=== PATIENT | female | born 1955 | race Caucasian/White ===

== ENCOUNTER → 2018-06-28 07:55 | Outpatient (CLI) | payer OTHER, SELFPAY | DX: Z12.31 Encounter for screening mammogram for malignant neoplasm of breast (principal) | CPT/HCPCS: 77063; 77067 ==

== ENCOUNTER → 2023-12-03 | Outpatient (CLI) | payer MEDICARE, OTHER, SELFPAY ==
--- OUTSIDE RECORDS SUMMARY | 2023-12-03 07:30 | XMS RPT_ITS | CCD ---
Author Name Unknown Address [address] [place] [address] Organization [facility] Care Team Providers Care Assessment Consultant Name Role Phone Nanette Kendall Unavailable Chana Palomino Unavailable Unavailable Unavailable Unavailable Yuli Balderrama Primary Care Provider [phone] YULI BALDERRAMA Primary Care Unavailable ONDINA COFFEY Referring Unavailable YULI BALDERRAMA Primary Care Unavailable Allergies Allergy Classification Reported Allergen(s) Allergy Type Date of Onset Reaction(s) Facility (2 sources) celecoxib Drug Allergy [facility] Work Phone: (2 sources) traMADol Drug Allergy [facility] Work Phone: (2 sources) celecoxib; Translations: [CELECOXIB] Drug Allergy 7 [facility] Work Phone: (2 sources) Crump-2 Inhibitor/Nsaid ; Translations: [CRUMP-2 INHIBITOR/NSAID ] Propensity to adverse reactions 4 [facility] Medications Current Medications Medication Drug Class(es) Dates Sig (Normalized) Sig (Original) amoxicillin 875 mg / clavulanate 125 mg oral tablet (1 source) Penicillin-class Antibacterial Start: 09-04-2023 End: 09-11-2023 take 1 tablet by mouth twice daily amoxicillin-clav ulanic acid (AUGMENTIN) 875-125 mg per tablet Take 1 tablet by mouth two times a day for 7 days. 14 tablet 0 09/04/2023 09/11/2023 Active Completed/Discontinued Medications Medication Drug Class(es) Dates Sig (Normalized) Sig (Original) 60 actuat albuterol 0.09 mg/actuat metered dose inhaler (4 sources) beta2-Adrenergic Agonist Start: 08-30-2006 End: 08-28-2008 ALBUTEROL SULFATE HFA, 108MCG/ACT (Inhalation Aerosol Soln) 1-2 Aerosol Soln q4-6 hr prn for 0 days Refills: 0 Ordered: 28-Aug-2008 Chana Palomino NASH Start : 30-Aug-2006 End : 28-Aug-2008 Inactive Problems Active Problems Problem Classification Problem Date Documented Da te Episodic/Chronic Adjustment disorders (2 sources) Dysfunctional grieving; 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 Asthma (12 sources) Asthma; Translations: [Asthma] 01-25-2017 Chronic Deficiency and other anemia (2 sources) Anemia; Translations: [Anemia] 01-25-2017 Episodic Disorders of lipid metabolism (2 sources) Hypercholesterolemia; Translations: [Hypercholesteremia] 01-25-2017 Chronic Esophageal disorders (10 sources) Gastroesophageal reflux disease; Translations: [GERD (gastroesophageal reflux disease)] 01-25-2017 Chronic Gastrointestinal hemorrhage (10 sources) Rectal hemorrhage; Translations: [Gastrointestinal hemorrhage] 01-25-2017 Episodic Headache; including migraine (2 sources) Migraine; Translations: [Migraine] 01-25-2017 Chronic Past or Other Problems Problem Classification Problem Date Documented Da te Episodic/Chronic Genitourinary symptoms and ill-defined conditions (2 sources) Dysuria; Translations: [Dysuria] Resolved: 04-06-2009 09-28-2015 Episodic Residual codes; unclassified (2 sources) Needs influenza immunization; Translations: [Need for prophylactic vaccination and inoculation against influenza] Resolved: 04-06-2009 08-17-2015 Episodic Unclassified (2 sources) TAHBSO 01-25-2017 Unclassified (2 sources) Cholelithiasis; Translations: [Cholelithiasis] 01-25-2017 Unclassified (4 sources) SYMPTOMS INVOLVING URINARY SYSTEM; DYSURIA (788.1) Unclassified (4 sources) Non-smoker; Translations: [Non-smoker] 01-25-2017 Unclassified (2 sources) BMI 31.0-31.9,adult Unclassified (2 sources) Internal hemorrhoid Unclassified (2 sources) Family history of colon cancer Results Test Name Value Interpretation Reference Range Facil ity Vital Signs Date Time Vital Sign Value Performing Clinician Facility 09-04-2023 15:02-0400 Body temperature 98.2 [degF] Ondina Erlinda [employer]CASS TRIMMER.DRILL INSTRUCTOR Work Phone: [facility] 09-04-2023 15:02-0400 Body weight 68.95 kg Ondina Erlinda [employer]CASS TRIMMER[employer]DRILL INSTRUCTOR Work Phone: [facility] 09-04-2023 15:02-0400 Diastolic blood pressure 83 mm[Hg] Ondina Erlinda CARCASS TRIMMER[employer]DRILL INSTRUCTOR Work Phone: [facility] 09-04-2023 15:02-0400 Heart rate 97 /min Ondina Erlinda [employer]CASS TRIMMER[employer]DRILL INSTRUCTOR Work Phone: [facility] 09-04-2023 15:02-0400 Respiratory rate 22 /min Ondina Erlinda CARCASS TRIMMER[employer]DRILL INSTRUCTOR Work Phone: [facility] 09-04-2023 15:02-0400 SaO2% (BldA) [Mass fraction] 97 % Ondina Erlinda CARCASS TRIMMER.DRILL INSTRUCTOR Work Phone: [facility] 09-04-2023 15:02-0400 Systolic blood pressure 134 mm[Hg] Ondina Erlinda CARCASS TRIMMER.DRILL INSTRUCTOR Work Phone: [facility] 01-25-2017 08:54-0400 BMI (Body Mass Index) 31.32 kg/m2 Nanette [facility] Work Phone: 01-25-2017 08:54-0400 Body weight 72.75 kg Nanette [facility] Work Phone: 01-25-2017 08:54-0400 BP Diastolic 90 mm[Hg] Nanette [facility] Work Phone: Encounters Encounter Date Encounter Type Care Provider Facility Start: 09-04-2023 End: 09-04-2023 ambulatory YULI BALDERRAMA Facility:[facility] Start: 09-04-2023 End: 09-04-2023 Patient encounter procedure Ondina Coffey CARCASS TRIMMER[employer]DRILL INSTRUCTOR Work Phone: [facility] Plan of Treatment Date Care Activity Detail Author Start: 07-13-2023 Covid-19 Vaccine () Covid-19 Vaccine () [facility] Start: 07-13-2023 Influenza vaccination Influenza Vaccine (#1) [facility] Start: 11-12-2022 Advance Directive Discussion Advance Directive Discussion [facility] Start: 11-12-2022 Depression Assessment Depression Assessment [facility] Start: 2020 Bone Density Screening Bone Density Screening [facility] Start: 2020 Pneumococcal Vaccine: 65+ (1 - PCV) Pneumococcal Vaccine: 65+ (1 - PCV) [facility] Start: 01-25-2017 Procedure Education Eprescribed prescriptions (G8553) [facility] Work Phone: Start: 2015 RSV Vaccine (1 - 1-dose 60+ series) RSV Vaccine (1 - 1-dose 60+ series) [facility] Start: 05-01-2012 Colorectal Cancer Screening Colorectal Cancer Screening [facility] Start: 05-01-2012 Sigmoidoscopy Sigmoidoscopy [facility] Start: 10-22-2008 Provider Instructions for Treatment [facility] Work Phone: Start: 08-28-2008 Culture bacterial quanttative colony count urine URINE HAN CULTURE-AVERY COL COUNT (10184) [facility] Work Phone: Start: 04-22-2008 Provider Instructions for Treatment [facility] Work Phone: Start: 04-22-2008 Blood occult fecal hgb deter ia qual feces 1-3 FECAL OCCULT- Tubes sent home (79451) [facility] Work Phone: Immunizations Immunization Date Immunization Notes Care Provider Blas morelos 08-28-2008 influenza, seasonal, injectable Nanette Kendall [facility] Work Phone: Payers Date Payer Category Payer Medicare MEDICARE MEDICAR E A AND B [id number] 2020-Present [phone] [place] [address] Medicare [id number] 2020 Medicare [id number] 2020 Medicare [id number] 2020 Private Health Insurance HUMANA HUMANA MEDICARE SUPPLEMENT [id number] 2020-Present [phone] [address] [address] [place] [address] Indemnity [id number] Unknown [facility] [employer]. 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 alcohol (finding) [facility] Start: 10-19-2020 End: 09-04-2023 Tobacco use panel [facility] National Score (1-100), lower number is lower risk Not on file [facility] Start: 1955 Sex Assigned At Not on file [facility] Progress note 09-04-2023 Note Date & Type Note Facility 09-04-2023 Note HNO ID: [id number] Author: Luci Zelaya RT(R) Service: Radiology Author Type: Technologist Type: Progress Notes Filed: 09/04/2023 3:33 PM Note Text: Radiology Service Progress Note PATIENT NAME: Marquita Reyna DATE OF SERVICE: September 04, 2023 TIME: 3:25 PM PATIENT IDENTITY VERIFICATION COMPLETED USING TWO (2) IDENTIFIERS: Name and Date of confirmed by patient verbally. FALL SCREENING: Has the patient had 2 falls in the last year or 1 fall with injury or currently using an Ambulatory Assistive Device (Walker, Cane, Wheelchair, Crutches, etc.)? No PATIENT GENDER DATA: Female. status: : No status: NO. PATIENT RELEVANT IMPLANT DATA REVIEWED: Yes RADIOLOGY DEPARTMENT: General X-ray: Exam(s) Completed: Chest X-Ray PERIPHERAL IV DATA: Not applicable SIGNED BY: RT Tonya(R) September 04, 2023 3:25 PM [facility] Progress note 09-04-2023 Note Date & Type Note Facility 09-04-2023 Note HNO ID: [id number] Author: Ondina Coffey APRN.DRILL INSTRUCTOR Service: ? Author Type: Nurse Practitioner Type: Progress Notes Filed: 09/04/2023 3:46 PM Note Text: Subjective The history is provided by the patient. No tile and marble setter was used. HPI Marquita eRyna is a 67 year old female who presents today for CC of cough, and pain in back with coughing that started 2 months ago and won't go away. She was placed on Prednisone x 2, zpack, tesssalon perls by Abel Goodson without relief. She denies ever any resolution of symptoms . She has not had a cxr, denies any chronic lung disease BP 134/83 Pulse 97 Temp 36.8 ?C (98.2 ?F) Resp 22 Wt 68.9 kg (152 lb) SpO2 97% BMI 29.69 kg/m? Social History Tobacco Use Smoking status: Never Smokeless tobacco: Never Substance Use Topics Alcohol use: No Drug use: Never PAST MEDICAL HISTORY Diagnosis Date Anemia, unspecified External hemorrhoids without mention of complication Internal hemorrhoids without mention of complication PMH - PAST MEDICAL HISTORY OF fibroid tumor Unspecified asthma(493.90) I have confirmed and edited as necessary, the [facility] Review of Systems Constitutional: Negative for chills and fever. HENT: Negative for congestion, ear pain, sinus pain and sore throat. Respiratory: Positive for cough. Negative for sputum production, shortness of breath and wheezing. Cardiovascular: Negative for chest pain. Musculoskeletal: Negative for myalgias. Neurological: Negative for headaches. Objective Physical Exam Vitals and nursing note reviewed. HENT: Head: Normocephalic and atraumatic. Right Ear: Tympanic membrane, ear canal and external ear normal. Left Ear: Tympanic membrane, ear canal and external ear normal. Nose: No mucosal edema, congestion or rhinorrhea. Right Sinus: No maxillary sinus tenderness or frontal sinus tenderness. Left Sinus: No maxillary sinus tenderness or frontal sinus tenderness. Mouth/Throat: Pharynx: Uvula midline. No oropharyngeal exudate or posterior oropharyngeal erythema. Cardiovascular: Rate and Rhythm: Normal rate and regular rhythm. Heart sounds: Normal heart sounds. Pulmonary: Effort: Pulmonary effort is normal. Breath sounds: Normal breath sounds. Comments: A dry, tickling, hacking cough was noted during this encounter. Talking in full sentences. Handling secretions without drooling. Lips and nailbeds are pink without cyanosis. Lymphadenopathy: Head: Right side of head: No submental, submandibular or tonsillar adenopathy. Left side of head: No submental, submandibular or tonsillar adenopathy. Cervical: No cervical adenopathy. Skin: General: Skin is warm and dry. Neurological: Mental Status: She is alert. Psychiatric: Mood and Affect: Affect normal. ASSESSMENT/PLAN: 1. Chronic cough - ICD9: 786.2, ICD10: R05.3 Doxycycline/augmentin as ordered Albuterol inhaler 2 puffs every 4-6 hours Follow up with PCP for recheck in 2 weeks. - XR CHEST 2V FRONTAL/LAT RESULT: Lines, tubes, and devices: None. Lungs and pleura: Hazy opacities overlying the right lower lung noted. The left lung is clear. No solid mass lesions seen. No pleural effusions or pneumothorax. Cardiomediastinal silhouette: Stable cardiomediastinal silhouette. Bones and soft tissues: There are degenerative changes in the spine. IMPRESSION: Hazy opacities overlying the right lower lung, likely related to pneumonia or aspiration. Please clinically correlate. Interpreted by : MIKEL ESCUDERO MD Diagnosis and treatment plan were discussed and questions were answered to the patient's satisfaction. Pt acknowledged understanding of concepts and follow up plan. Specific signs and symptoms that would indicate the need for higher level of care were discussed in detail warranting prompt ER evaluation. Ondina Coffey APRN.CNP [facility] Instructions 09-04-2023 Patient Instructions Note Date & Type Note Facility 09-04-2023 Instructions Ondina Coffey APRN.MATTHEW - 09/04/2023 3:46 PM EDT Doxycycline/augmentin as ordered Albuterol inhaler 2 puffs every 4-6 hours Follow up with PCP for recheck in 2 weeks. * Seek medical care immediately, call 911, go to ER if you have chest pain, difficulty breathing, shortness of breath, inability to swallow. documented in this encounter [facility] History of Present illness Narrative 09-04[facility]20[facility] 3[facility]11 PM EDT Note Date & Type Note Facility 09-04-2023 History of Presen t illness Narrative Subjective The history is provided by the patient. No tile and marble setter was used. HPI Marquita Reyna is a 67 year old female who presents today for CC of cough, and pain in back with coughing that started 2 months ago and won't go away. She was placed on Prednisone x 2, zpack, tesssalon perls by Abel Goodson without relief. She denies ever any resolution of symptoms . She has not had a cxr, denies any chronic lung disease BP 134/83 Pulse 97 Temp 36.8 C (98.2 F) Resp 22 Wt 68.9 kg (152 lb) SpO2 97% BMI 29.69 kg/m Social History Tobacco Use Smoking status: Never Smokeless tobacco: Never Substance Use Topics Alcohol use: No Drug use: Never PAST MEDICAL HISTORY Diagnosis Date Anemia, unspecified External hemorrhoids without mention of complication Internal hemorrhoids without mention of complication PMH - PAST MEDICAL HISTORY OF fibroid tumor Unspecified asthma(493.90) I have confirmed and edited as necessary, the [facility] Review of Systems Constitutional: Negative for chills and fever. HENT: Negative for congestion, ear pain, sinus pain and sore throat. Respiratory: Positive for cough. Negative for sputum production, shortness of breath and wheezing. Cardiovascular: Negative for chest pain. Musculoskeletal: Negative for myalgias. Neurological: Negative for headaches. Objective Physical Exam Vitals and nursing note reviewed. HENT: Head: Normocephalic and atraumatic. Right Ear: Tympanic membrane, ear canal and external ear normal. Left Ear: Tympanic membrane, ear canal and external ear normal. Nose: No mucosal edema, congestion or rhinorrhea. Right Sinus: No maxillary sinus tenderness or frontal sinus tenderness. Left Sinus: No maxillary sinus tenderness or frontal sinus tenderness. Mouth/Throat: Pharynx: Uvula midline. No oropharyngeal exudate or posterior oropharyngeal erythema. Cardiovascular: Rate and Rhythm: Normal rate and regular rhythm. Heart sounds: Normal heart sounds. Pulmonary: Effort: Pulmonary effort is normal. Breath sounds: Normal breath sounds. Comments: A dry, tickling, hacking cough was noted during this encounter. Talking in full sentences. Handling secretions without drooling. Lips and nailbeds are pink without cyanosis. Lymphadenopathy: Head: Right side of head: No submental, submandibular or tonsillar adenopathy. Left side of head: No submental, submandibular or tonsillar adenopathy. Cervical: No cervical adenopathy. Skin: General: Skin is warm and dry. Neurological: Mental Status: She is alert. Psychiatric: Mood and Affect: Affect normal. ASSESSMENT/PLAN: 1. Chronic cough - ICD9: 786.2, ICD10: R05.3 Doxycycline/augmentin as ordered Albuterol inhaler 2 puffs every 4-6 hours Follow up with PCP for recheck in 2 weeks. - XR CHEST 2V FRONTAL/LAT RESULT: Lines, tubes, and devices: None. Lungs and pleura: Hazy opacities overlying the right lower lung noted. The left lung is clear. No solid mass lesions seen. No pleural effusions or pneumothorax. Cardiomediastinal silhouette: Stable cardiomediastinal silhouette. Bones and soft tissues: There are degenerative changes in the spine. IMPRESSION: Hazy opacities overlying the right lower lung, likely related to pneumonia or aspiration. Please clinically correlate. Interpreted by : MIKEL ESCUDERO MD Diagnosis and treatment plan were discussed and questions were answered to the patient's satisfaction. Pt acknowledged understanding of concepts and follow up plan. Specific signs and symptoms that would indicate the need for higher level of care were discussed in detail warranting prompt ER evaluation. Ondina Coffey APRN.DRILL INSTRUCTOR documented in this encounter [facility] Evaluation note Note Date & Type Note Facility documented in this encounter [facility] Family History No Family History Records FoundUnknown Family Member Name Dates Details Father Comments:CVA, Colon CA, dece ased Status:Active Mother Comments:Cerebral hemorrhage , at 51 Status:Active Instructions Name Dates Details How to access [employer] Indication:Non-smoker Start:25-Jan-2017 Instruction Type:Patient Education How to access [employer] online - Detail Indication:Non-smoker Start:25-Jan-2017 Instruction Type:Patient Education Patient Instructions Indication:Non-smoker Start:25-Jan-2017 Instruction Type:Provider Instructions for Treatment Summary Purpose Advance Directives No Advanced Directives Records FoundNo Advanced Directives Records FoundNo Advanced Directives Records Found Additional Source Comments INFORMATION SOURCE (unrecogn ized section and content) DATE CREATED AUTHOR AUTHOR'S ORGANIZ ATION 11/12/2019 [facility] DATE CREATED AUTHOR AUTHOR'S ORGANIZ ATION 09/06/2023 [facility] Source Comments (unrecognize d section and content) In the event this informatio n is protected by the Federal Confidentiality of Alcohol and Drug Abuse Patient Records regulations: The Federal rules restrict any use of the information to criminally investigate or prosecute any alcohol or drug abuse patient.[facility] Reason for Visit (unrecogniz ed section and content) Care Teams (unrecognized sec tion and content) FOR RECORDS PERTAINING TO PATIENTS WHO ARE OR HAVE BEEN ENROLLED IN A CHEMICAL DEPENDENCY/SUBSTANCEABUSE PROGRAM, SOME INFORMATION MAY BE OMITTED. This clinical summary was aggregated from multiple sources. Caution should be exercised in using it in the provision of clinical care. This summary normalizes information from multiple sources, and as a consequence, information in this document may materially change the coding, format and clinical context of patient data. In addition, data may be omitted in some cases. CLINICAL DECISIONS SHOULD BE BASED ON THE PRIMARY CLINICAL RECORDS. [employer] [facility]. provides no warranty or guarantee of the accuracy or completeness of information in this document.
--- NOTE | 2023-12-03 08:52 | NEURO ---
NCS and/or EMG Patient Report Ordering Doctor: Alan Singh DATE OF SERVICE: 12/03/23 Clinical Summary: 68 year old female presenting with complaints of numbness/tingling that runs from the dorsum of the right foot upwards towards the knee. She denies having any numbness, tingling, or pain in the left lower extremity. This EMG/NCS was performed to evaluate for right peroneal mononeuropathy and/or lumbar radiculopathy. Nerve Conduction Studies Summary: There was a drop in the right peroneal motor conduction velocity across the fibular head of approximately 10 m/s. All other performed nerve conductions in the bilateral lower extremities were within normal ranges. Needle Examination Summary: Needle examination of select muscles of the right lower extremity was normal. 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 Multi Select Codes Neurology Neurology Interp Codes: 45383-83 Musc test done w/n test comp (interp) (1) and 50896-12 Nrv cndj test 7-8 studies (interp)
== END | disposition home or self-care (01) ==
PROVIDERS: Referring Provider Podiatrist; Visit Provider Podiatrist
DX: R20.2 Paresthesia of skin (principal)
CPT/HCPCS: 95886; 95910

== ENCOUNTER 2023-12-11 16:30 | Outpatient (RCR) | payer MEDICARE, OTHER, SELFPAY ==
--- NOTE | 2023-12-03 11:17 | HP.PTEVAL_ITS ---
Patient's Visit Information Visit Information Visit Information: MORELIA GILMAN is a 68 year old F referred to Physical Therapy by Dr. Alan Singh DPM with a diagnosis of R achillies tendinitis. Date of Evaluation: 11/26/23 Physical Therapist: Dami López DPT Visit Plan Frequency: 1-2x /Week Duration: 6 Weeks Plan: Start with reducing symptoms including US or DN. Manual stretching progressing HEP as tolerated. Once symptoms have started to improve add in PF eccentrics to remodel tissue. Subjective Subjective: Pt. is here today for her initial evaluation with diagnosis R achillies tendinitis. Pt. reports having in a bone spur that is causing a lot of pain at her posterior calcaneus. Pt. has increased pain with wearing shoes and with walking. Minimal pain at rest. pt. denies N/T. She reports sudden onset of symptoms with out mech of injury. She is sleeping okay. Increased pain with all ADLs and with all work/recreational activities. Pt. likes working with horses, not as much riding but taking care of them. She is hopeful to reduce symptoms in order to get back to all of the above activities without limitations. Pain R heel: Pain Intensity (Out of 10): 3 Pain Intensity Range: 1 and 6 Objective Objective: POSTURE: pt. has increased wt. shift to L LE. Pt. is able to increase WBing on R side, but is more painful. PALPATION: Pt. is very tender along distal end of Achilles, there is a marked protrusion at this region. Very painful to palpation; slight increase in redness. NEURO: normal throughout. ROM: R ankle PROM: DF 2 deg increase NW (empty end feel), PF 44deg, INV 9deg NE, EVR 4 deg increase NW. MMT: LLE 5/5 throughout; R LE: ankle DF 4/5, PF 4/5 increase NW, INV 4/5, EVR 4/5. R knee 5/5 throughout. Pt. is unable to effectively do a heel raise seconda ry to pain. GAIT: pt. ambulates without AD, but very antalgic pattern noted. Pt. has minimal to no fore foot rocker moment on RLE. Pt. walks very flat footed. Decreased L step length noted. STAIRS: step to pattern loading LLE only. Good tolerance. Unable to eccentrically load RLE with descending. Balance/Special Test Scores Lower Extremity Functional Score: 47 Goals Goal 1:: LTG: Pt. to be I with HEP for R achillies including eccentrics and stretching. Goal Time Frame: 4-6 Weeks Goal 2:: STG: Pt. to be able to ambulate with normal gait pattern with 0-2/10 pain allowing for improved quality of life. Goal Time Frame: 2-4 Weeks Goal 3:: LTG: Pt. to have increased R ankle DF ROM to 20deg allowing for improved gait pattern. Goal Time Frame: 4-6 Weeks Goal 4:: LTG: Pt. to have increased R ankle strength to 5/5 throughout. Goal Time Frame: 4-6 Weeks Goal 5:: LTG: Pt. to complete all stairs with reciprocal pattern with use of 1 HR without increase in R calcaneal pain. Goal Time Frame: 4-6 Weeks Rehabilitation Potential Physical Therapy Diagnosis: Pt. has signs and symptoms consistent with R achillies tendinitis. She has subsequent hypomobility, increased pain, limited ability to complete all ADls and household work. Pt. would benefit from PT to address the above limitations progressing back to all recreational and household activiites. Rehabilitation Potential: Good Anticipated Interventions Patient/Client Instruction: Educate patient on: Condition, Plan of Care, Risk Factors and Benefits of Fitness Program For the Purpose of:: To facilitate caregiver knowledge, To improve self management, To prevent re-injury, To improve ability to perform tasks related to life management and To improve tolerance to ADL's Therapeutic Exercise to Include: Strength training, Power training, Body mechanics, Postural training, Flexibilty training, Gait and locomotor training, Passive ROM and Active ROM For the Purpose of:: To decrease pain, To increase ROM, To improve nutrient delivery to tissue, To increase oxygenation perfusion, To improve muscle performance and motor function, To improve ability to perform ADL's, To improve ability of physical actions for home/community/work/leisure, To decrease soft tissue restriction and To increase flexibility/ROM Manual Therapy Techniques to Include: Passive ROM, Functional dry needling and Soft tissue mobilization For the Purpose of:: To decrease pain, To decrease swelling/inflammation, To increase ROM, To improve nutrient delivery to tissue and To increase oxygenation perfusion TENS: Yes Ultrasound (thermal/non thermal): Yes For the Purpose of:: To decrease pain, To decrease swelling/inflammation, To increase ROM, To improve nutrient delivery to tissue, To increase oxygenation perfusion and To improve muscle performance and motor function Text: Thank you for the opportunity to evaluate your patient. For Medicare and Medicare HMO plans, please review the plan of care and approve it. It will need to be FAXED BACK to us at [phone] for Medicare purposes. For Medicare only, by signing this I certify the plan of care. Please let me know if there are questions or concerns regarding this plan of care. Physician Signature: Date:
--- NOTE | 2023-12-17 14:49 | HP.PTDCNRP_ITS ---
Patient Information Patient Information: MORELIA GILMAN was seen in my office for initial evaluation on 11/26/23. The following Plan of Care was established for this patient: POC Established Initial Frequency: 1-2x /Week Initial Duration: 6 Weeks Anticipated Interventions Patient/Client Instruction: Educate patient on: Condition, Plan of Care, Risk Factors and Benefits of Fitness Program For the Purpose of:: To facilitate caregiver knowledge, To improve self management, To prevent re-injury, To improve ability to perform tasks related to life management and To improve tolerance to ADL's Therapeutic Exercise to Include: Strength training, Power training, Body mechanics, Postural training, Flexibilty training, Gait and locomotor training, Passive ROM and Active ROM For the Purpose of:: To decrease pain, To increase ROM, To improve nutrient delivery to tissue, To increase oxygenation perfusion, To improve muscle pe rformance and motor function, To improve ability to perform ADL's, To improve ability of physical actions for home/community/work/leisure, To decrease soft tissue restriction and To increase flexibility/ROM Manual Therapy Techniques to Include: Passive ROM, Functional dry needling and Soft tissue mobilization For the Purpose of:: To decrease pain, To decrease swelling/inflammation, To increase ROM, To improve nutrient delivery to tissue and To increase oxygenation perfusion TENS: Yes Ultrasound (thermal/non thermal): Yes For the Purpose of:: To decrease pain, To decrease swelling/inflammation, To increase ROM, To improve nutrient delivery to tissue, To increase oxygenation perfusion and To improve muscle performance and motor function Last Seen Last Seen: This patient was last seen in our office 12/11/23. Pertinent comments regarding their Physical therapy will appear below: Pt. was seen in PT for her heel spur and achilles tendinitis. After talked with patient she was not having much relief or improvement with PT and would like to follow back up with physician at this point in time. Pt. will be DC from PT this date. At this point I will be discontinuing this patient from physical therapy. I would be happy to see this patient again in the future if found appropriate by the physician. Thank you! Dami López, DPT Balance/Gait/Functional tests Balance/Special Test Scores Lower Extremity Functional Score: 27
== END 2023-12-11 19:00 | disposition home or self-care (01) ==
LOC: PT 16:30
PROVIDERS: Visit Provider Podiatrist
DX: M76.61 Achilles tendinitis, right leg (principal)
CPT/HCPCS: 97035; 97140; 97161; 97530

== ENCOUNTER → 2024-01-07 | Outpatient (CLI) | payer MEDICARE, OTHER, SELFPAY ==
--- NOTE | 2024-01-07 16:15 | MRI_ITS ---
EXAM: MR RIGHT LOWER EXTREMITY WITHOUT INTRAVENOUS CONTRAST, ANKLE CLINICAL INDICATION: ANKLE PAIN TECHNIQUE: Multiplanar and multisequence MR images of the right ankle without intravenous contrast. COMPARISON: No relevant prior studies available. FINDINGS: LIGAMENTS: ANTERIOR TALOFIBULAR: Unremarkable. Intact. POSTERIOR TALOFIBULAR: Unremarkable. Intact. ANTERIOR TIBIOFIBULAR: Unremarkable. Intact. POSTERIOR TIBIOFIBULAR: Unremarkable. Intact. CALCANEOFIBULAR: Unremarkable. Intact. DELTOID: Altered signal involving the superficial to deep fibers of the deltoid ligamentous complex is compatible with moderate grade sprain injury. SPRING: Unremarkable. Intact. LISFRANC: Unremarkable. Intact. TENDONS: ACHILLES: Mild thickening of the distal Achilles tendon without tendon tearing. Focal subcutaneous edema superficial to the distal Achilles tendon. FLEXOR: Unremarkable. Intact. EXTENSOR: Unremarkable. Intact. PERONEAL: Unremarkable. Intact. TIBIALIS ANTERIOR: Unremarkable. Intact. TIBIALIS POSTERIOR: Unremarkable. Intact. MUSCLES: Unremarkable. Normal bulk and signal. FLUID: Tiny amount retrocalcaneal bursal fluid. No significant posterior subtalar joint effusion. Small posterior tibiotalar joint effusion. SINUS TARSI: Sinus Tarsi is intact. TARSAL TUNNEL: Unremarkable. PLANTAR FASCIA: Unremarkable. Intact. CARTILAGE: Unremarkable. No osteochondral lesion. Articular cartilage intact. BONES/JOINTS: Nonaggressive intraosseous cystic lesion at the distal fibula measuring 1.0 x 0.9 cm. Prominent plantar calcaneal enthesophyte. Ankle mortise is intact with no osteochondral lesions at the tibiotalar articulation. No fracture or marrow edema. OTHER SOFT TISSUES: See above. MRI/Lower Ext Joint Only (Routine) IMPRESSION: 1. Moderate strain injury suggested involving the deltoid ligamentous complex. 2. Nonaggressive intraosseous cystic lesion at the distal fibula measuring 1.0 x 0.9 cm. This is probably benign. 3. No other significant internal derangement. Electronically Signed: James Woo MD at 22:04 EST Reading Location ID and State: [facility] / [place] Tel , Service support ,
--- OUTSIDE RECORDS SUMMARY | 2024-01-07 23:38 | XMS RPT_ITS | CCD ---
Author Name Unknown Address [address] [place] [address] Organization [facility] Care Team Providers Care Paleobotanist Name Role Phone Nanette Kendall Unavailable Chana Palomino Unavailable Unavailable Unavailable Unavailable Yuli Balderrama Primary Care Provider [phone] YULI BALDERRAMA Primary Care Unavailable ONDINA COFFEY Referring Unavailable YULI BALDERRAMA Primary Care Unavailable Allergies Allergy Classification Reported Allergen(s) Allergy Type Date of Onset Reaction(s) Facility (2 sources) celecoxib Drug Allergy [facility] Work Phone: (2 sources) traMADol Drug Allergy [facility] Work Phone: (2 sources) celecoxib; Translations: [CELECOXIB] Drug Allergy 7 [facility] Work Phone: (2 sources) Crump-2 Inhibitor/Nsaid ; Translations: [CRUMP-2 INHIBITOR/NSAID ] Propensity to adverse reactions 4 [facility] Medications Current Medications Medication Drug Class(es) Dates [...] 15:02-0400 Body temperature 98.2 [degF] Ondina Erlinda HEAD OF DIGITAL.ROTARY ADJUSTER Work Phone: [facility] 09-04-2023 15:02-0400 Body weight 68.95 kg Ondina Erlinda HEAD OF DIGITAL.ROTARY ADJUSTER Work Phone: [facility] 09-04-2023 15:02-0400 Diastolic blood pressure 83 mm[Hg] Ondina Erlinda HEAD OF DIGITAL.ROTARY ADJUSTER Work Phone: [facility] 09-04-2023 15:02-0400 Heart rate 97 /min Ondina Erlinda HEAD OF DIGITAL.ROTARY ADJUSTER Work Phone: [facility] 09-04-2023 15:02-0400 Respiratory rate 22 /min Ondina Erlinda HEAD OF DIGITAL.ROTARY ADJUSTER Work Phone: [facility] 09-04-2023 15:02-0400 SaO2% (BldA) [Mass fraction] 97 % Ondina Erlinda HEAD OF DIGITAL.ROTARY ADJUSTER Work Phone: [facility] 09-04-2023 15:02-0400 Systolic blood pressure 134 mm[Hg] Ondina Erlinda HEAD OF DIGITAL.ROTARY ADJUSTER Work Phone: [facility] 01-25-2017 08:54-0400 BMI (Body Mass Index) 31.32 kg/m2 Nanette [facility] Work Phone: 01-25-2017 08:54-0400 Body weight 72.75 kg Nanette [facility] Work Phone: 01-25-2017 08:54-0400 BP Diastolic 90 mm[Hg] Nanette [facility] Work Phone: Encounters Encounter Date Encounter Type Care Provider Facility Start: 09-04-2023 End: 09-04-2023 ambulatory YULI BALDERRAMA Facility:[facility] Start: 09-04-2023 End: 09-04-2023 Patient encounter procedure Ondina Coffey HEAD OF DIGITAL.ROTARY ADJUSTER Work Phone: [facility] Plan of Treatment Date Care Activity Detail Author Start: 07-13-2023 Covid-19 Vaccine () Covid-19 Vaccine () [facility] Start: 07-13-2023 Influenza vaccination Influenza Vaccine (#1) [facility] Start: 11-12-2022 Advance Directive Discussion Advance Directive Discussion [facility] Start: 11-12-2022 Depression Assessment Depression Assessment [facility] Start: 2020 Bone Density Screening Bone Density Screening [facility] Start: 2020 Pneumococcal Vaccine: 65+ (1 - PCV) Pneumococcal Vaccine: 65+ (1 - PCV) [facility] Start: 01-25-2017 Procedure Education Eprescribed prescriptions (G8553) [facility] Work Phone: Start: 2015 RSV Vaccine (1 - 1-dose 60+ series) RSV Vaccine (1 - 1-dose 60+ series) [facility] Start: 05-01-2012 Colorectal Cancer Screening Colorectal Cancer Screening [facility] Start: 05-01-2012 Sigmoidoscopy Sigmoidoscopy [facility] Start: 10-22-2008 Provider Instructions for Treatment [facility] Work Phone: Start: 08-28-2008 Culture bacterial quanttative colony count urine URINE HAN CULTURE-AVERY COL COUNT (04408) [facility] Work Phone: Start: 04-22-2008 Provider Instructions for Treatment [facility] Work Phone: Start: 04-22-2008 Blood occult fecal hgb deter ia qual feces 1-3 FECAL OCCULT- Tubes sent home ([id number]) [facility] Work Phone: Immunizations Immunization Date Immunization Notes Care Provider Blas morelos 08-28-2008 influenza, seasonal, injectable Nanette Kendall [facility] Work Phone: Payers Date Payer Category Payer Medicare MEDICARE MEDICAR E A AND B [id number] 2020-Present [phone] [place] [address] Medicare [id number] 2020 Medicare [id number] 2020 Medicare [id number] 2020 Private Health Insurance HUMANA HUMANA MEDICARE SUPPLEMENT [id number] 2020-Present [phone] [address] [address] [place] [address] Indemnity [id number] Unknown [facility] [employer] Social History Date Type Detail Facility Start: 10-19-2020 End: 09-04-2023 Non Drinker/No Alcohol Use Non Drinker/No Alcohol Use [facility] Work Phone: Start: 09-04-2023 Tobacco smoking status NHIS Never smoked tobacco [facility] Start: 09-04-2023 Tobacco use and exposure Smokeless tobacco non-user [facility] Start: 09-04-2023 Alcohol intake Current non-dr operations support specialist of alcohol (finding) [facility] Start: 10-19-2020 End: 09-04-2023 Tobacco use panel [facility] National Score (1-100), lower number is lower risk Not on file [facility] Start: 1955 Sex Assigned At Not on file C [facility] Progress note 09-04-2023 Note Date & Type Note Facility 09-04-2023 Note HNO ID: [id number] Author: Luci Zelaya RT(R) Service: Radiology Author [...] RT Tonya(R) September 04, 2023 3:25 PM [facility] Progress note 09-04-2023 Note Date & Type Note Facility 09-04-2023 Note HNO ID: [id number] Author: Ondina Coffey APRN.ROTARY ADJUSTER Service: ? Author Type: Nurse Practitioner Type: Progress Notes Filed: 09/04/2023 3:46 PM Note Text: Subjective The history is provided by the patient. No tunnel elastic operator zigzag was used. HPI Marquita Reyna is a [...] have confirmed and edited as necessary, the [facility] Review of Systems Constitutional: Negative for chills [...] warranting prompt ER evaluation. Ondina Coffey APRN.CNP [facility] Instructions 09-04-2023 Patient Instructions Note Date & [...] inability to swallow. documented in this encounter [facility] History of Present illness Narrative [facility]-04[facility] 3[facility]11 PM EDT Note Date & Type Note Facility 09-04-2023 History of Presen t illness Narrative Subjective The history is provided by the patient. No tunnel elastic operator zigzag was used. HPI Marquita Reyna is a [...] have confirmed and edited as necessary, the [facility] Review of Systems Constitutional: Negative for chills [...] detail warranting prompt ER evaluation. Ondina Coffey APRN.MATTHEW documented in this encounter [facility] Evaluation note Note Date & Type Note Facility documented in this encounter [facility] Family History No Family History Records FoundUnknown Family Member Name Dates Details Father Comments:CVA, Colon CA, dece ased Status:Active Mother Comments:Cerebral hemorrhage , at 51 Status:Active Instructions Name Dates Details How to access [employer] Indication:Non-smoker Start:25-Jan-2017 Instruction Type:Patient Education How to access [employer] online - Detail Indication:Non-smoker Start:25-Jan-2017 Instruction Type:Patient Education Patient Instructions Indication:Non-smoker Start:25-Jan-2017 Instruction Type:Provider Instructions for Treatment Summary Purpose Advance Directives No Advanced Directives Records FoundNo Advanced Directives Records FoundNo Advanced Directives Records Found Additional Source Comments INFORMATION SOURCE (unrecogn ized section and content) DATE CREATED AUTHOR AUTHOR'S ORGANIZ ATION 11/12/2019 [facility] DATE CREATED AUTHOR AUTHOR'S ORGANIZ ATION 09/06/2023 [facility] Source Comments (unrecognize d section and content) In the event this informatio n is protected by the Federal Confidentiality of Alcohol and Drug Abuse Patient Records regulations: The Federal rules restrict any use of the information to criminally investigate or prosecute any alcohol or drug abuse patient.[facility] Reason for Visit (unrecogniz ed section and [...] BE BASED ON THE PRIMARY CLINICAL RECORDS. [facility]. provides no warranty or guarantee of the accuracy or completeness of information in this document.
== END | disposition home or self-care (01) ==
LOC: MRI 15:29
PROVIDERS: Referring Provider Podiatrist; Visit Provider Podiatrist
DX: M76.61 Achilles tendinitis, right leg (principal)
CPT/HCPCS: 73721

== ENCOUNTER 2024-02-08 13:08 | Outpatient (CLI) | payer MEDICARE, OTHER, SELFPAY ==
[2024-02-08 13:20] LABS: Mucous, Urine 0 SEEN /hpf (<or=2+); Red Blood Cells-Urine 0 SEEN /hpf (0-5)
[2024-02-08 15:21] LABS: Color, Urine Yellow (Yellow); Glucose, Dipstick Normal (Normal); Ketone-Dipstick Negative (Negative); Leukocyte Esterase-Dipstick 25 /ul (Negative); Nitrite-Dipstick Negative (Negative); Occult Blood-Urine 10 /ul (Negative); Protein-Dipstick 15 mg/dl (Negative); Urine Bilirubin Dipstick Negative (Negative); Urine Clarity Clear (Clear); Urine Urobilinogen Normal (Normal)
[2024-02-08 15:31] LABS: Absolute Lymphocyte Count 2.55 X10^3/uL (0.83-4.51); Absolute Neutrophil Count 5.5 X10^3/uL (2.0-7.7); Basophil# 0.07 X10^3/uL; Basophil% 0.8 % (0-1); Eosinophil# 0.19 X10^3/uL; Eosinophils% 2.1 % (0-5); Hematocrit 41.4 % (37-47); Hemoglobin 13.6 g/dL (12.0-15.0); Lymphocyte # 2.55 X10^3/ul (0.83-4.51); Lymphocyte % 28.5 % (19-41); Mean Corp Hgb Conc 32.9 g/dL (32-36); Mean Corpuscular Hgb 28.3 pg (27.0-32.0); Mean Corpuscular Volume 86.1 fL (81-99); Mean Platelet Vol. 11.3 fl (6.2-12.0); Monocyte# 0.64 X10^3/uL; Monocyte% 7.2 % (0-10); NRBC Flagged by Analyzer 0 % (0-5); Neutrophil # 5.46 X10^3/uL (2.7-7.7); Neutrophil % 61.1 % (47-70); Platelet Count 270 K/mm3 (150-450); Red Blood Count 4.81 M/mm3 (4.2-5.4); White Blood Count 8.9 K/mm3 (4.4-11.0)
[2024-02-08 15:33] LABS: Squamous Epithelial Cells - UA 0-5 SEEN /hpf (5-10); White Blood Cells 0-5 SEEN /hpf (0-5)
[2024-02-08 15:34] LABS: Amorphous Sediment 1+; Bacteria RARE /hpf (None Seen)
[2024-02-08 16:30] LABS: Cholesterol 223 mg/dL (200); High Density Lipoprotein 37 mg/dL; Thyroid Stim Hormone (TSH) 1.37 uIU/mL (0.358-3.74); Triglycerides 525 mg/dL
== END 2024-02-08 23:59 | disposition home or self-care (01) ==
PROVIDERS: PCP Family Medicine; Referring Provider Family Medicine; Visit Provider Family Medicine
DX: Z01.818 Encounter for other preprocedural examination (principal); E78.1 Pure hyperglyceridemia
CPT/HCPCS: 36415; 80061; 81001; 84443; 85025

== ENCOUNTER → 2024-02-19 | Outpatient (CLI) | payer MEDICARE, OTHER, SELFPAY ==
[2024-02-19 13:27] LABS: Cholesterol 187 mg/dL (200); High Density Lipoprotein 47 mg/dL; Triglycerides 139 mg/dL; Very Low Density Lipoprotein 28 mg/dL (5-40)
== END | disposition home or self-care (01) ==
PROVIDERS: PCP Family Medicine; Referring Provider Family Medicine; Visit Provider Family Medicine
DX: E78.1 Pure hyperglyceridemia (principal)
CPT/HCPCS: 36415; 80061

== ENCOUNTER 2024-02-22 05:51 | Day surgery (SDC) | payer MEDICARE, OTHER, SELFPAY ==
[2024-02-22] VITALS (9 sets, daily range): BP systolic 136–179; BP diastolic 76–96; PULSE 62–79; RESP 14–18; TEMP 36.1–37.2; O2SAT 93–99; BMI 30.2
[2024-02-22] MEDS: Lactated Ringers 1,000 ML 15 ML IV (06:32)
--- NOTE | 2024-02-22 07:30 | BUR_PTH ---
PATIENT: MORELIA GILMAN LOC: [facility] U#:[id number] AGE/SX: 68/F ROOM: RE02/22/[address]: Dr. Alna Singh DPM : 1955 BED: DIS: 02/22/2024 SPEC #: [id number] RECD: 02/22/24 13:30 STATUS: DELPHINE ERLIN #: [id number] MONSTER: 02/22/24 07:[address]: Alan Singh DEPT: SURGICAL PATHOLOGY RECD BY: Lesly Christian ENTERED: 02/22/24 14:23 SP TYPE: BURSA MARÍA DR: Dr. Adan Fuller MD Tissues: Bursa, NOS Procedures: Decalcification bone/plaque Surgery Specimen Level III HEADER OPERATION: Calcaneal exostectomy reattach Achilles PRE-OP DIAGNOSIS: Right Achilles tendon detachment TISSUE SUBMITTED: Tendonitis and bursa right foot MICROSCOPIC DIAGNOSIS Tendonitis and bursa right foot, excision: Fragments of fibroconnective tissue, fibroadipose tissue and bone with reactive changes. [facility] 02/28/2024 MICROSCOPIC DESCRIPTION Slides are reviewed. GROSS DESCRIPTION Received in fixative is one container labeled with the patient's name and designated Tendonitis and bursa right foot. The specimen consists of multiple fragments of potter-yellow soft indurated tissue measuring in aggregate 4.0 x 2.5 x 0.5cm. Also present in the container is a piece of bone measuring 2.5 x 1.0 x 0.5cm. Clinical Massage Therapist sections are submitted in two cassettes as follow: 1-soft tissue, 2- bone entirely submitted after decalcification. [facility] 02/22/24 TC:5 CPT: 69428,36659
--- NOTE | 2024-02-22 07:35 | RAD_ITS ---
PROCEDURE: Intraoperative fluoroscopic services provided for calcaneal surgery. DATE OF EXAMINATION: February 22, 2024. INDICATION: Female, 68 years old. Calcaneal pain. FLUOROSCOPY TIME (if supplied): (11 seconds) minutes/seconds. 0.27 mGy. 5 spot images were obtained. RAD/Calcaneus min 2 Views IMPRESSION: Intraoperative imaging provided for calcaneal surgery. Electronically Signed: Giovanni Andrade MD at 15:07 EDT ,
[2024-02-22] MEDS: Cefazolin 2 GM in 0.9% Normal Saline (100mL Bag) 100 ML IV (07:37)
--- NOTE | 2024-02-22 09:25 | OP.PCM_ITS ---
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 MRI was ordered to confirm diagnosis. Patient opted for surgical management. Surgeon: Alan Singh Type of Anesthesia: General Special Medications: Popliteal block per anesthesia Specimen's removed: Insertional Achilles tendon and retrocalcaneal bursa Drains: None Estimated Blood Loss (mL): Minimal Fluids Replaced: None Description of Procedure: Patient was brought back the operating and induced under general anesthesia. Patient was then placed in the prone position on the operating room table. All osseous prominences were offloaded prevent any compression neuropraxia's. Well- padded right thigh tourniquet was applied. Preoperatively patient received popliteal block. Right lower extremity was scrubbed prepped draped using typical aseptic fashion. Once cleared by anesthesia right lower extremity was elevated exsanguinated tourniquet was inflated to 300 mmHg. A linear incision directly over the posterior Achilles tendon was drawn out just proximal to the insertion extending just distal to the insertion approximately 7 to 8 cm in length. This incision would be made with a 15 blade through epidermis dermis into subcutaneous tissue. Blunt dissection was taken down the level of deep fascia. Any bleeders were i dentified and cauterized. Neurovascular structures identified and protected with blunt retraction. Full-thickness incision through deep fascia peritenon and Achilles tendon was made splitting it longitudinally and the duct was dissected off its insertion with a book and opening approach. This exposed the retrocalcaneal exostoses and Korin's deformity. As well as inflamed retrocalcaneal bursa. Some thickened Achilles tendon was debrided from the medial and lateral aspects of the tendon as well as the retrocalcaneal bursa was excised using a rongeur these were both passed to the back table to be sent for pathologic examination. Retrocalcaneal spur and Korin's deformity removed with sagittal saw and additionally a large tear rasp was confirmed with fluoroscopic imaging. Next the tendon was read tubularized using FiberWire. For [place] suture fix anchors were placed approximately 1.5 to 2 cm apart in a square fashion. Starting with the proximal row with attached FiberWire suture. Standard double row Achilles tendon repair was performed. The proximal 2 anchors were placed and the suture FiberWire was passed through the Achilles tendon and the Achilles tendon was receded back to the calcaneus additionally 1 strand from each anchor were split and passed to the other and inserted to the distal row anchors which would then be applied and inserted using manufactures guidelines. This was with the foot held in slight gravity plantarflexion. Once these anchors were seated the suture was cut and the tourniquet was let down. Total tourniquet time was noted to be 44 minutes. Subcutaneous closure was performed with 2-0 Monocryl running. Injectable via flow was injected into the Achilles tendon repair site to allow for limited scar tissue formation and improved healing at site. Skin closure was performed with 3-0 Monocryl subcuticular running intradermal. Incisional site was then cleansed and additionally stabilized with overlying Steri-Strips Betadine Adaptic 4 x 4's Kerlix and a well-padded AO splint with the foot and ankle held in a rectus position. Patient was transported to PACU vital signs stable vascular status intact all digits for further monitoring prior to discharge. Patient tolerated procedure and anesthesia well in apparent satisfactory condition. No complications Adequate removal of distal Achilles tendinosis retrocalcaneal spur and Korin's deformity Insertional Achilles tendon and retrocalcaneal bursa sent for pathologic examination Grafts/Implants Used: XMS Penvision medical viaflow graft, for citrefix anchors [place] Complications None Admit VTE Documentation VTE Present on Admission: Yes VTE Pharm Prophylaxis ordered?: Yes
[2024-02-22] MEDS: oxyCODONE 5 MG Tablet PO (11:27)
[2024-02-22] MEDS: Ketorolac 30 MG/ML Syringe IV (11:27)
== END 2024-02-22 11:57 | disposition home or self-care (01) ==
LOC: SDC 05:51 → AC 07:32
PROVIDERS: PCP Family Medicine; Referring Provider Podiatrist; Visit Provider Podiatrist
PROC: (CPT 28899; principal; 2024-02-22 07:15)
DX: M76.61 Achilles tendinitis, right leg (principal); M77.31 Calcaneal spur, right foot; M76.891 Other specified enthesopathies of right lower limb, excluding foot; Z79.82 Long term (current) use of aspirin
CPT/HCPCS: 27650; 28119; 64450; 01472; 73650; 76000; 88304; J7120; J2405

== ENCOUNTER 2024-04-21 16:00 | Outpatient (RCR) | payer MEDICARE, OTHER, SELFPAY ==
--- NOTE | 2024-04-08 16:44 | HP.PTEVAL_ITS ---
Patient's Visit Information Visit Information Visit Information: MORELIA GILMAN is a 68 year old F referred to Physical Therapy by Dr. Alan Singh DPM with a diagnosis of 02/21 insertional Achilles tendon reconstruction with removal of calcane. Date of Evaluation: 04/08/24 Physical Therapist: Katja Sanders DPT Visit Plan Frequency: 1x/Week Duration: 1 Week Plan: 1x visit for HEP- stretching for gastroc and balance- will follow up in 3 weeks- encouraged pt to call if she has questions or concerns. 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 Patient was allowed to wean out of the boot about two weeks ago and she went the whole the day without it and today as well. She does have some discomfort behind the left knee and feels tightness behind the right ankle. Worst: 3/10 Agg: bending down, squatting, coming down the stairs. Best: 0/10 Eases: ice and boot. Every once in awhile she has some discomfort into the calf on the outside of the calf when she is sitting doing nothing. She does not wear orthotics or inserts in her shoes. No N/T in her toes. Sleep: not disturbed. Patient feels that she is 85-90% better. She feels that she just has some ti ghtness. She watches her grand daughter and does chores for her horses without issues. Normal shoe is Hey Dudes and Crocs. She wears Crocs in the barn. PMHx/ Meds: see list in chart. Objective Objective: Posture: forward head, rounded shoulder can correct with verbal cues Gait: no CAM walker- slightly antalgic decreased stance on the right LE HR/TR: able with UE A- report slight pulling with TR SLS: left: 30 sec without LOB Right: 5 sec then LOB ROM: DF: 5 degrees, PF: 40 degrees, Inver: 30 degrees Ever: 15 degrees Flex: Gastroc: moderate Soleus: mild Strength: DF: 46 PF: 33 Inver: 30 Ever: 17 Balance/Special Test Scores Lower Extremity Functional Score: 56 Goals Goal 1:: Patient will be I with HEP and progression Goal Time Frame: 4-6 Weeks Rehabilitation Potential Physical Therapy Diagnosis: Patient presents with hypomobility- she has decreased strength, proprioception and flexibility s/p surgery of the right Achilles leading to abnormal gait and balance Rehabilitation Potential: Good Anticipated Interventions Patient/Client Instruction: Educate patient on: Benefits of Fitness Program Therapeutic Exercise to Include: Strength training, Endurance training, Balance training, Agility training, Body mechanics, Postural training, Flexibilty training, Gait and locomotor training, Neuromotor development, Dynamic Lumbar Stabilization and Scapular Strength/Stabilization Cryotherapy (ice pack, ice massage): Yes Thermo therapy (hot pack): Yes Text: Thank you for the opportunity to evaluate your patient. For Medicare and Medicare HMO plans, please review the plan of care and approve it. It will need to be FAXED BACK to us at [phone] for Medicare purposes. For Medicare only, by signing this I certify the plan of care. Please let me know if there are questions or concerns regarding this plan of care. Physician Signature: Date:
--- NOTE | 2024-04-21 16:24 | HP.PTDCSUM ---
Discharge Summary D/C summary: It has been my pleasure to treat MORELIA GILMAN referred by Dr. Alan Singh DPM, with the diagnosis of 02/21 insertional Achilles tendon reconstruction with removal of calcane for a total of 2 visit(s). Discharge Date: Please see the following information for a summary of their discharge status. Subjective Subjective: Patient reports that she is 70% back to normal. She feels that she get stiff at night. Worst: 01/19 in the last week. 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 Overall Improvement % Improvement: 70 Objective Objective/Function: Posture: forward head, rounded shoulder can correct with verbal cues Gait: no deviation noted-- good stride length noted- good heel/toe HR/TR: able with UE A- report slight pulling with TR SLS: left: 30 sec without LOB Right: 20 sec ROM: DF: 15 degrees, PF: 40 degrees, Inver: 30 degrees Ever: 15 degrees Flex: Gastroc: moderate Soleus: mild Goals Goal 1:: Patient will be I with HEP and progression Goal Progress: Goal Met Plan Plan: 04/21/24: Discharge to I HEP- encourage to call if questions or concerns arise. IE: 1x visit for HEP- stretching for gastroc and balance- will follow up in 3 weeks- encouraged pt to call if she has questions or concerns. HEP Given IE: HR/TR, SLS, Gastroc Stretch Step/Standing/Towel D/C Information d/c sentence: If there are questions or concerns regarding this patient's physical therapy, please feel free to call me at [phone]. Thank you for the referral of this patient. Sincerely, Katja Sanders, DPT Balance/Gait/Functional tests Balance/Special Test Scores Lower Extremity Functional Score: 80 Improvement % Improvement: 70
== END 2024-04-21 19:00 | disposition home or self-care (01) ==
LOC: PT 16:00
PROVIDERS: PCP Family Medicine; Referring Provider Podiatrist; Visit Provider Podiatrist
DX: M76.61 Achilles tendinitis, right leg (principal)
CPT/HCPCS: 97110; 97162; 97530

== ENCOUNTER → 2024-04-30 | Outpatient (CLI) | payer MEDICARE, OTHER, SELFPAY ==
--- NOTE | 2024-04-30 15:07 | BI_ITS ---
MAMMOGRAPHY - BILATERAL SCREENING REASON FOR EXAM: Female, 68 years old. Routine annual screening examination. PERTINENT HISTORY: Non-contributory. TECHNIQUE: Digital bilateral breast leobardo (3D mammographic acquisition) in the CC and MLO projections. 2-D mediolateral oblique (MLO) and craniocaudad (CC) views of both breasts were obtained. CAD: Full Field Digital Mammography with Computer Added Detection was performed. COMPARISON: Comparison is made with prior study dated June 28, 2018. FINDINGS: Breast Composition: There are scattered areas of fibroglandular density. There are no dominant masses or suspicious calcifications. Stable fat-containing bilateral axillary lymph nodes. No other significant abnormalities are identified. There has been no significant change since the prior study. BI/SCRN MAMM (CAD)W/LEOBARDO BILAT IMPRESSION: Stable bilateral screening mammogram. Yearly follow-up mammogram recommended. (A) ASSESSMENT CATEGORY: BIRADS Category 2: Benign. A letter regarding these results will be sent to the patient by the facility within 30 days. Approximately 10% of breast cancers are not detected by mammography. A normal mammogram should not delay biopsy of a clinically suspicious abnormality. [id number] Electronically Signed: Giovanni Andrade MD at 8:08 EDT ,
== END | disposition home or self-care (01) ==
LOC: OPBI 15:05
PROVIDERS: PCP Family Medicine; Referring Provider Family Medicine; Visit Provider Family Medicine
DX: Z12.31 Encounter for screening mammogram for malignant neoplasm of breast (principal)
CPT/HCPCS: 77063; 77067

== ENCOUNTER → 2024-10-22 | Outpatient (CLI) | payer OTHER, MEDICARE, SELFPAY ==
--- NOTE | 2024-10-22 16:10 | RAD_ITS ---
STUDY: X-RAY - LUMBAR SPINE REASON FOR EXAM: Female, 69 years old. R20.2/Paresthesia of skin TECHNIQUE: 5 view(s) of the lumbar spine were obtained. COMPARISON: None FINDINGS: Normal lumbar lordosis. There is no substantial scoliosis. There is a normal alignment of the vertebrae. Normal vertebral bodies and endplates. There is multi-level degenerative disc disease with multi-level disc space narrowing. There is no demonstrated fracture. The soft tissue structures are unremarkable. RAD/L/S Spine Min 4 Views IMPRESSION: Degenerative changes of the spine, as detailed above. No acute abnormality Electronically Signed: Iggy Mccormack MD at 21:07 EST ,
== END | disposition home or self-care (01) ==
PROVIDERS: PCP Family Medicine; Referring Provider Podiatrist; Visit Provider Podiatrist
DX: R10.2 Pelvic and perineal pain (principal)
CPT/HCPCS: 72110

== ENCOUNTER → 2025-02-20 | Outpatient (CLI) | payer MEDICARE, OTHER, SELFPAY ==
[2025-02-20 07:37] LABS: Mucous, Urine 0 SEEN /hpf (<or=2+); Red Blood Cells-Urine 0 SEEN /hpf (0-5)
[2025-02-20 08:40] LABS: Absolute Lymphocyte Count 2.18 X10^3/uL (0.83-4.51); Basophil# 0.05 X10^3/uL; Basophil% 0.8 % (0-1); Eosinophil# 0.16 X10^3/uL; Eosinophils% 2.7 % (0-5); Hematocrit 44.7 % (37-47); Hemoglobin 14.8 g/dL (12.0-15.0); Lymphocyte # 2.18 X10^3/ul (0.83-4.51); Lymphocyte % 36.8 % (19-41); Mean Corp Hgb Conc 33.1 g/dL (32-36); Mean Corpuscular Hgb 28.4 pg (27.0-32.0); Mean Corpuscular Volume 85.8 fL (81-99); Mean Platelet Vol. 11.4 fl (6.2-12.0); Monocyte# 0.49 X10^3/uL; Monocyte% 8.3 % (0-10); NRBC Flagged by Analyzer 0 % (0-5); Neutrophil # 3.04 X10^3/uL (2.7-7.7); Neutrophil % 51.2 % (47-70); Platelet Count 230 K/mm3 (150-450); RBC Distribution Width CV 13.4 % (11.6-14.6); RBC Distribution Width SD 41.9 fl (35.1-43.9); Red Blood Count 5.21 M/mm3 (4.2-5.4); White Blood Count 5.9 K/mm3 (4.4-11.0)
[2025-02-20 08:49] LABS: Color, Urine Yellow (Yellow); Glucose, Dipstick Normal (Normal); Ketone-Dipstick Negative (Negative); Leukocyte Esterase-Dipstick 500 /ul (Negative); Nitrite-Dipstick Negative (Negative); Occult Blood-Urine 25 /ul (Negative); Protein-Dipstick 15 mg/dl (Negative); Urine Bilirubin Dipstick Negative (Negative); Urine Clarity Clear (Clear); Urine Urobilinogen Normal (Normal)
[2025-02-20 09:13] LABS: Bacteria RARE /hpf (None Seen); Squamous Epithelial Cells - UA 0-5 SEEN /hpf (5-10); White Blood Cells 50-100 SEEN /hpf (0-5)
[2025-02-20 09:34] LABS: Magnesium 2.4 mg/dL (1.5-2.2)
[2025-02-20 09:35] LABS: ALB/GLOB Ratio 1.3 RATIO (0.9-2.4); AST(SGOT) 29 U/L (<=31); Alanine Aminotransfer ALT/SGPT 21 U/L (<=34); Albumin, Serum 4.3 g/dL (3.4-4.8); Alkaline Phosphatase 66 U/L (35-104); Anion Gap 13 (5-15); BUN 17 mg/dL (4-19); BUN/Creat Ratio 23.9 RATIO (10-20); Calcium,Total 10.1 mg/dL (7.6-11.0); Carbon Dioxide 21.2 mmol/L (21.0-32.0); Chloride 104 mmol/L (98-108); EST Glomerular Filtration Rate 94 (>60); Globulin 3.2 g/dL (2.2-4.2); Glucose 103 mg/dL (70-99); Potassium 4.1 mmol/L (3.3-5.1); Protein, Total 7.5 g/dL (5.9-8.4); Sodium Level 138 mmol/L (133-145); Total Bilirubin 0.45 mg/dL (0.00-1.30)
[2025-02-23 12:39] LABS: Hemoglobin A1c 5.9 % (<=5.6)
== END | disposition home or self-care (01) ==
LOC: LAB 07:33
PROVIDERS: PCP Family Medicine; Referring Provider Family Medicine; Visit Provider Family Medicine
DX: R03.0 Elevated blood-pressure reading, without diagnosis of hypertension (principal)
CPT/HCPCS: 80053; 81001; 83036; 83735; 85025

== ENCOUNTER 2025-02-25 06:25 | Outpatient (CLI) | payer MEDICARE, OTHER, SELFPAY ==
[2025-02-25 07:38] LABS: Hemoglobin A1c 5.8 % (<=5.6)
== END 2025-02-25 23:59 | disposition home or self-care (01) ==
LOC: LAB 06:27
PROVIDERS: PCP Family Medicine; Referring Provider Family Medicine; Visit Provider Family Medicine
DX: E11.22 Type 2 diabetes mellitus with diabetic chronic kidney disease (principal); N18.9 Chronic kidney disease, unspecified; R82.81 Pyuria; R30.9 Painful micturition, unspecified
CPT/HCPCS: 36415; 83036; 87077; 87086; 87088; 87186

== ENCOUNTER → 2025-05-05 | Outpatient (CLI) | payer MEDICARE, OTHER, SELFPAY ==
--- NOTE | 2025-05-05 16:25 | BD_ITS ---
PROCEDURE: DEXA BONE DENSITY STUDY 05/05/2025 REASON FOR EXAM: F, age 69 y/o . TECHNIQUE: DEXA BONE DENSITY STUDY COMPARISON: None FINDINGS: BMD and T-SCORES Lumbar spine: 0.801 g/cm2, T-score -1.6 Levels: L1-L2 Left femoral neck: 0.825 g/cm2, T-score -0.2 Femoral neck comparison data not recommended for monitoring change. Left total hip: 0.908 g/cm2, T-score -0.3 Right femoral neck: 0.772 g/cm2, T-score -0.7 Femoral neck comparison data not recommended for monitoring change. Right total hip: 0.915 g/cm2, T-score -0.2 The World Health Organization has defined the following categories based on bone density: Normal bone density: T-score equal to or greater than -1.0 Osteopenia: T-score between -1.0 and -2.5 Osteoporosis: T-score equal to or less than -2.5 FRAX (or Comparable) Fracture Risk Assessment: 10 Year Probability of Fracture: Major Osteoporotic Fracture: 7.9% Hip Fracture: 0.6% (Note: FRAX is not to be reported in setting of normal range bone density, osteoporosis on DEXA, known history of osteoporosis, prior osteoporotic hip or vertebral fracture, or for any patient undergoing pharmacological treatment for bone loss.) The National Osteoporosis Foundation (NOF) recommends pharmacological treatment for patients with a FRAX 10-year risk of 3% or higher for a hip fracture, or 20% or higher for a major osteoporotic fracture, to prevent osteoporosis and reduce fracture risk. The patient does not meet the pharmacological treatment recommendations for prevention of osteoporosis. BD/Dexa Bone Density Study IMPRESSION: OSTEOPENIA. Reading Location: [id number]
--- NOTE | 2025-05-05 17:00 | BI_ITS ---
EXAM: SCRN MAMM (CAD)W/LEOBARDO BILAT DATE: 05/05/2025 CLINICAL HISTORY: F, Age 69 y/o , SCREENING TECHNIQUE: SCRN MAMM (CAD)W/LEOBARDO BILAT COMPARISON: Prior exam(s) were compared FINDINGS: TISSUE DENSITY: The breast tissue is heterogeneously dense, which may obscure small masses. Bilateral Breast Mammographic Findings: No suspicious masses, calcifications or other abnormalities are identified. BI/SCRN MAMM (CAD)W/LEOBARDO BILAT IMPRESSION: No mammographic evidence of malignancy in either breast OVERALL FINAL ASSESSMENT BI-RADS 1: NEGATIVE. RECOMMEND ANNUAL MAMMOGRAPHIC SCREENING. RECOMMENDATION: Routine annual follow-up in 1 Year A letter with findings and recommendations will be mailed to the patient. Reading Location: [id number]
== END | disposition home or self-care (01) ==
LOC: OPBD 16:21
PROVIDERS: PCP Family Medicine; Referring Provider Family Medicine; Visit Provider Family Medicine
DX: Z12.31 Encounter for screening mammogram for malignant neoplasm of breast (principal); Z78.0 Asymptomatic menopausal state
CPT/HCPCS: 77063; 77067; 77080

== ENCOUNTER → 2025-06-04 | Outpatient (CLI) | payer MEDICARE, OTHER, SELFPAY | END | disposition home or self-care (01) | PROVIDERS: PCP Family Medicine | DX: R35.0 Frequency of micturition (principal) | CPT/HCPCS: 87077; 87086; 87088 ==

== ENCOUNTER 2025-10-15 08:56 | Outpatient (CLI) | payer MEDICARE, OTHER, SELFPAY ==
[2025-10-15 09:05] LABS: Red Blood Cells-Urine 0 SEEN /hpf (0-5)
[2025-10-15 09:28] LABS: Color, Urine Yellow (Yellow); Glucose, Dipstick Normal (Normal); Ketone-Dipstick Negative (Negative); Leukocyte Esterase-Dipstick Negative /ul (Negative); Nitrite-Dipstick Negative (Negative); Occult Blood-Urine 25 /ul (Negative); Protein-Dipstick Negative (Negative); Specific Gravity, Urine 1.020 (1.002-1.030); Urine Bilirubin Dipstick Negative (Negative)
[2025-10-15 09:28] LABS: Hematocrit 42.7 % (37-47); Hemoglobin 14.0 g/dL (12.0-15.0); Immature Granulocytes Count 0.020 X10^3/uL (0.0-0.0); Mean Corp Hgb Conc 32.8 g/dL (32-36); Mean Corpuscular Volume 87.5 fL (81-99); Mean Platelet Vol. 11.1 fl (6.2-12.0); NRBC Flagged by Analyzer 0 % (0-5); Platelet Count 212 K/mm3 (150-450); RBC Distribution Width CV 12.7 % (11.6-14.6); RBC Distribution Width SD 40.3 fl (35.1-43.9); Red Blood Count 4.88 M/mm3 (4.2-5.4); White Blood Count 7.1 K/mm3 (4.4-11.0)
[2025-10-15 09:51] LABS: Mucous, Urine 1+ /hpf (<or=2+); Squamous Epithelial Cells - UA 0-5 SEEN /hpf (5-10)
[2025-10-15 10:19] LABS: AST(SGOT) 26 U/L (<=31); Alanine Aminotransfer ALT/SGPT 24 U/L (<=34); Albumin, Serum 4.3 g/dL (3.4-4.8); Alkaline Phosphatase 70 U/L (35-104); Anion Gap 9 (5-15); BUN 19 mg/dL (4-19); BUN/Creat Ratio 28.5 RATIO (10-20); Calcium,Total 10.4 mg/dL (7.6-11.0); Carbon Dioxide 25.9 mmol/L (21.0-32.0); Chloride 102 mmol/L (98-108); Cholesterol 208 mg/dL (<=200); Globulin 3.2 g/dL (2.2-4.2); Glucose 103 mg/dL (70-99); Low Density Lipoprotein Calc. 125 mg/dL; Magnesium 2.4 mg/dL (1.5-2.2); Potassium 4.5 mmol/L (3.3-5.1); Triglycerides 157 mg/dL; Very Low Density Lipoprotein 31 mg/dL (5-40); Vitamin D,25 Hydroxy 53.9 ng/mL (30-100); cholesterol:hdl ratio screen 3.79
== END 2025-10-15 23:59 | disposition home or self-care (01) ==
LOC: LAB 08:58
PROVIDERS: PCP Family Medicine; Referring Provider Family Medicine; Visit Provider Family Medicine
DX: N39.0 Urinary tract infection, site not specified (principal); I10 Essential (primary) hypertension; R73.02 Impaired glucose tolerance (oral)
CPT/HCPCS: 36415; 80053; 80061; 81001; 82306; 83036; 83735; 84443; 85025; 87086; 87088